=== PATIENT | male | born 1985 | race Caucasian/White ===

== ENCOUNTER → 2017-03-22 | Emergency (ER) | payer BC, OTHER ==
[~2017-03-22] VITALS: Ht 182.9 cm; Wt 72.6 kg
[~2017-03-22] MED LIST: HYOS0.1265 SL; ONDA4TAB12 PO
[2017-03-22 11:32] VITALS: BP 113/48
--- NOTE | 2017-03-22 11:35 | PHYS DOC ---
Past History Past Medical History: Other Past Surgical History: Tonsillectomy Alcohol Use: None Drug Use: None Adult General Chief Complaint Chief Complaint: ABDOMINAL PAIN HPI HPI Patient is a 31-year-old male who presents with complaints of abdominal discomfort, nausea, decreased appetite, flushed cheeks, subjective fevers at home, throat discomfort and mild dyspnea with ambulation. Patient did not receive a flu shot this year. Unknown if sick contacts. No recent travel. Patient is not a smoker or alcohol drinker. No vomiting or diarrhea. Review of Systems Review of Systems Constitutional: Subjective fever this morning Eyes: Denies change in visual acuity, redness, or eye pain [] HENT: Yes to throat discomfort and ear r discomfort Respiratory: Mild shortness of breath Cardiovascular: No chest pain GI: Denies abdominal pain, nausea, vomiting, or diarrhea [] : Denies dysuria or hematuria [] Musculoskeletal: Diffuse muscle aches[] Integument: Denies rash or skin lesions [] Neurologic: Denies headache, focal weakness or sensory changes [] ] All other systems were reviewed and found to be within normal limits, except as documented in this note. Allergies Allergies Allergies Coded Allergies Type Severity Reaction Last Updated Verified No Known Drug Allergies 03/22/17 No Physical Exam Physical Exam Constitutional: Well developed, well nourished, no acute distress, non-toxic appearance. [] HENT: Normocephalic, atraumatic, bilateral external ears normal, oropharynx moist, no oral exudates, nose normal. [] Eyes: EOMI, conjunctiva normal, no discharge. [] Neck: Normal range of motion, no tenderness, supple, no stridor. No LAD, no meningeal signs Cardiovascular:Heart rate regular rhythm, no murmur, equal pulses, normal perfusion Lungs & Thorax: Bilateral breath sounds clear to auscultation , no tachypnea Abdomen: Bowel sounds normal, soft, no tenderness, no masses, no pulsatile masses. [] Skin: Warm, dry, no erythema, no rash. [] Back: No tenderness, no CVA tenderness. [] Extremities: No tenderness, ROM intact, no edema. [] Neurologic: Alert and oriented X 3, normal motor function, and relates in the ED with normal gait and without assistance, no focal deficits noted. [] Psychologic: Affect normal, judgement normal, mood normal. [] Current Patient Data Vital Signs Vital Signs Date Time Temp Pulse Resp B/P (MAP) Pulse Ox O2 Delivery O2 Flow Rate FiO2 03/22/17 10:33 98.9 84 22 98 EKG EKG [] Radiology/Procedures Radiology/Procedures [] Course & Med Decision Making Course & Med Decision Making Pertinent Labs and Imaging studies reviewed. (See chart for details) [] Dragon Disclaimer Dragon Disclaimer This electronic medical record was generated, in whole or in part, using a voice recognition dictation system. Departure Departure: Impression: Primary Impression: Abdominal pain Additional Impression: Viral syndrome Disposition: HOME, SELF-CARE Condition: STABLE Referrals: NON,STAFF (PCP) Please follow with your doctor for recheck and reevaluation in 3-5 days if your symptoms fail to resolve. If your abdominal pain worsens or new concerning symptoms develop return to the ED immediately Patient Instructions: Abdominal Pain (Nonspecific), Viral Syndrome Scripts Hyoscyamine Sulfate (LEVSIN-SL) 0.125 Mg Tab.subl 1 TAB SL TID for 5 Days, #15 TAB 1 Refill Prov: Phyllis GUTIERREZ MD 03/22/17 Ondansetron (ONDANSETRON ODT) 4 Mg Tab.rapdis 1 TAB PO PRN Q6-8HRS for 5 Days, #16 TAB Prov: Phyllis GUTIERREZ MD 03/22/17 Problem Qualifiers Phyllis GUTIERREZ MD Mar 22, 2017 11:34
--- NOTE | 2017-03-22 11:37 | RAD ---
Examination: 2 views of the chest History: History of fever Comparison: None available. Findings: The cardiomediastinal silhouette grossly appears unremarkable. There is no acute infiltrate or visualized pneumothorax identified. Impression: No acute cardiopulmonary findings.
== END | disposition home or self-care (01) ==
LOC: ER 10:10
DX: B34.9 Viral infection, unspecified (principal)
CPT/HCPCS: 71020; 99284